=== PATIENT | female | born 1985 | race Caucasian/White ===

== ENCOUNTER 2016-08-02 20:59 | Emergency (ER) | payer OTHER ==
--- NOTE | 2016-08-02 23:59 | ED CLINICAL REPORT ---
Clinical Report - Physicians/Mid Levels [facility] [address] [place] [address] 08/02/2016 21:00 Patient: AYDEN GRAYSON Time Seen: 21:13; initial patient contact. Arrived- By private vehicle. Historian- patient. HISTORY OF PRESENT ILLNESS Chief Complaint: VOMITING. This started today and is still present (persistent). It was abrupt in onset and has been intermittent. The patient has had nausea and vomiting. No diarrhea, abdominal pain, constipation or flank pain. Has not recently been on antibiotics. Last bowel movement: today. The illness is described as moderate. Similar symptoms previously: None. Recent medical care: Not recently seen/assessed. REVIEW OF SYSTEMS The patient has had fever of 99 F orally. No difficulty with urination or dark urine. All systems otherwise negative, except as recorded above. PAST HISTORY Flank Pain. Hematuria. PCOS. Contusion. Fractured Metatarsal. SURGERIES: Foot surgery. Medications: MetFORMIN HCl Oral. PROzac Oral. Allergies: Sulfa Antibiotics. SOCIAL HISTORY Former smoker. No alcohol use or drug use. ADDITIONAL NOTES The nursing notes have been reviewed with agreement regarding the chief complaint, PMH and patient medications and allergies. PHYSICAL EXAM Appearance: Alert. No acute distress. Eyes: No scleral icterus. ENT: Dry mucous membranes present. CVS: Normal heart rate and rhythm. Heart sounds normal. Respiratory: No respiratory distress. Breath sounds normal. Abdomen: Soft and nontender. Bowel sounds normal. No organomegaly. No mass. Back: Normal inspection. No CVA tenderness. Skin: Skin warm and dry. Normal skin color. No rash. Neuro: Oriented X 3. LABS, X-RAYS, AND EKG Laboratory Tests: CBC w Diff: (RAPHAEL: 08/02/2016 21:42) ( MsgRcvd 08/02/2016 21:50) Final results Test Result Flag Units (Reference) WHITE BLOOD COUNT 12.6 H K/uL (4.5-11.5) RED BLOOD COUNT 3.75 L M/uL (4.00-5.20) HEMOGLOBIN 11.1 L gm/dL (12.0-16.0) HEMATOCRIT 32.5 L % (36.0-46.0) MEAN CELL VOLUME 87 fL (80-100) MEAN CORPUSCULAR HGB 30 pg (26-34) MEAN CORPUSCULAR HGB CONC 34 g/dL (31-37) RED CELL DISTRIBUTION WIDTH 12.9 % (11.6-14.8) PLATELET COUNT 232 K/uL (150-400) NEUTROPHIL % 93.7 H % (50-75) LYMPH % 2.6 L % (25-40) MONO % 3.7 % (3-14) EOSINOPHIL % 0 % (0-4) BASOPHIL % 0 % (0-2) CMP: (RAPHAEL: 08/02/2016 21:42) ( MsgRcvd 08/02/2016 22:07) Final results Test Result Flag Units (Reference) GLUCOSE 92 mg/dL (70-110) BUN 8 mg/dL (7-18) CREATININE 0.6 mg/dL (0.6-1.3) Estimated GFR >60 mL/min Estimated GFR- >60 mL/min Note: Persistent reduction over 3 months in eGFR<60 mL/min/1.73 m2 defines CKD. Patients with eGFR values>=60 mL/min/1.73 m2 may also have CKD if evidence ofpersistent proteinuria. Additional information may be foundat [email or web address].org. SODIUM 139 mmol/L (136-145) POTASSIUM 3.3 L mmol/L (3.5-5.1) CHLORIDE 103 mmol/L (98-107) CARBON DIOXIDE 21 mmol/L (21-32) CALCIUM 8.7 mg/dL (8.5-10.1) TOTAL PROTEIN 6.9 g/dL (6.4-8.2) ALBUMIN 2.8 L g/dL (3.3-5.0) BILIRUBIN, TOTAL 0.5 mg/dL (0.0-1.0) ALKALINE PHOSPHATASE 43 L U/L (46-116) AST (SGOT) 17 U/L (15-37) ALT (SGPT) 19 U/L (12-78) LIPASE 129 U/L (73-393) AMYLASE 35 U/L (25-115) . PROGRESS AND PROCEDURES Course of Care: 00:09. Evaluation after repeat exam, IV fluids and Zofran. The patient's symptoms are now gone. Physical exam findings are improved. Disposition: Discharged home in good and improved condition. Condition: good. CLINICAL IMPRESSION Vomiting with nausea. No dehydration or volume depletion. Not intractable. INSTRUCTIONS Drink plenty of fluids. Avoid fatty, fried/greasy and spicy foods until better. Your Current Medications: CONTINUE TAKING THE FOLLOWING MEDICATIONS: MetFORMIN HCl Oral. PROzac Oral. Prescription Medications: Hydrocodone/APAP 5mg / 325mg: take 1 orally every 6 hours as needed for pain. Dispense ten (10). No refill. Zofran (orally disintegrating tablets) 4 mg: take 1 orally every 6 hours as needed for nausea and vomiting. Dispense ten (10). No refill. Substitution is permissible. Follow-up: Follow up with your doctor in about three days if not better. Call for an appointment. Screening today revealed the patient's blood pressure to be in the normal range. (Electronically signed by Aayush Alfaro Dr. 08/03/2016 0:02)
--- NOTE | 2016-08-02 23:59 | ED NURSING NOTES ---
Clinical Report - Nurses [facility] [address] [place] [address] 08/02/2016 21:00 Patient: AYDEN GRAYSON TRIAGE Triage time 2110 PM. Acuity: LEVEL 3. Chief Complaint: ABDOMINAL PAIN. Alert. No acute distress. SEPSIS SCREEN: Sepsis Screen. Negative (no infection suspected/documented). HEART TONES: heart tones present to the right lower quadrant (153). heart tones present to the right lower quadrant (153). MARIANO COMA SCORE: [place] Coma Scale: 15- eyes open spontaneously (4); best verbal response- oriented x 4 (5); best motor response- obeys commands (6). --21:24 Farrah Murray R.N. 21:13 08/02/16. BP: 121/74 (regular adult cuff) taken on the left arm, via an automated monitor, while lying. HR: 108. RR: 16. O2 saturation: 100% on room air. Temp: 99 F (oral). Pain level now: 10/02. --21:24 Farrah Murray R.N. Weight: 88.4 kg stated. Height/Length: 66 inches Per Patient. BMI: 31.5. --21:13 Farrah Murray R.N. Medications MetFORMIN HCl Oral. PROzac Oral. --21:28 Farrah Murray R.N. Allergies Sulfa Antibiotics. --21:28 Farrah Murray R.N. Medication/allergy information source: the patient. --21:24 Farrah Murray R.N. History Arrived by private vehicle. Historian: patient. Accompanied by family. Primary physician (Dr. Reynoso (general) OB at [facility]). ( Pt states being 25 weeks , has not had any vomiting until this morning, at around 8 am, pt felt dizzy and starting vomiting, approximately 12-15 times today, unable to keep anything down, with chills slight fever of 99.9, denies cramping, bleeding or discharge. Pt also complaints of bilateral flank pain, sharp, as well as joint pain. Did call the 24 hr nurse line and was recommended to come to ED). This started today. She has had vomiting. She has had low grade measured temperature of 99.9 F orally with chills (today). No swelling. Last oral intake by patient was dinner (lasst night). 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 PAST MEDICAL HX: Immunizations: up-to-date. Currently : 25 weeks. In 2nd trimester. Has had care in clinic. G 0. P 0. Ab 0. She has had care by an advertising copy writer. Risks and / or problems associated with current include vag bleeding during 1st trimester (sub hematoma/ no bedrest). SOCIAL HX: Former smoker, end date 2011. No alcohol use or drug use. No infectious disease exposure. ABUSE ASSESSMENT: No report of abuse. SELF HARM ASSESSMENT: A self harm assessment was performed. The patient answered "no" to the question "Do you have thoughts of harming or killing yourself?" and "Have you recently had thoughts about harming or killing others?". FALL RISK ASSESSMENT: Fall risk assessment completed. No fall risk identified. NUTRITIONAL RISK ASSESSMENT: The nutritional risk assessment revealed no deficiencies. FUNCTIONAL ASSESSMENT: Functional assessment: no impairments noted. LEARNING NEEDS ASSESSMENT: The learning needs assessment revealed no barriers. SKIN INTEGRITY ASSESSMENT: Skin integrity risk assessment completed. No skin integrity risk identified. --21:24 Farrah Murray R.N. PROBLEMS: Flank Pain. Hematuria. PCOS. Contusion. Fractured Metatarsal. LNMP - Last Normal Menstrual Period. --21:28 Farrah Murray R.N. ADDITIONAL SURGERIES: Foot surgery. --21:28 Farrah Murray R.N. Interventions ID band on patient. --21:24 Farrah Murray R.N. PHYSICAL ASSESSMENT Ambulatory to room. GENERAL / NEURO / PSYCH: Alert. Oriented X 4. Appears in no acute distress. HEENT: Mucous membranes are pink. RESPIRATORY: Respirations not labored. Breath sounds within normal limits. CVS: Capillary refill less than 2 seconds. GI / : Abdomen soft and nontender. No vaginal bleeding or discharge. EXTREMITIES: No lower extremity edema. SKIN: Skin is warm and dry. --21:26 Farrah Murray R.N. NURSING PROGRESS NOTES The initial plan of care for this patient has been created This plan of care was discussed with the patient. Patient gowned. Warming measures: blanket applied. Reassurance given. Two patient identifiers checked. Call light placed in reach. Side rails up x 1. Bed placed in lowest position. --21:27 Farrah Murray R.N. 21:45 08/02/2016 Site #1 started via IV in the left hand with an 20g angiocath; one attempt. Blood drawn: rainbow set. Labeled in the presence of the patient and sent to the lab. --21:45 Farrah Murray R.N. 21:46 08/02/2016 Zofran (Ondansetron HCl) IVP 4 mg given over 2 minute(s) via site #1. Allergies verified and confirmed 5 rights. IV patency established. IV site checked: no pain, redness, or swelling. IV flushed thoroughly pre- and post-medication administration. IVP given by RN. --21:46 Farrah Murray R.N. 21:46 08/02/2016 Started bag #1 1000 mL IV Fluids IV NS (Saline); at 1000 mL/hr over 1 hour(s) via site #1 via IV pump. Allergies verified and confirmed 5 rights. IV patency established. IV site checked: no pain, redness, or swelling. IV flushed thoroughly pre- and post-medication administration. Completed per protocol. --21:46 Farrah Murray R.N. 22:47 08/02/2016 IV Fluids IV NS Discontinued: bag #1 completed upon arrival. Total amount infused: 1000 mL. IV patency established. IV site checked: no pain, redness, or swelling. IV flushed thoroughly. --22:47 Farrah Murray R.N. 22:47 08/02/2016 Zofran IVP Response: no adverse reaction symptoms have improved the patient feels better. --22:47 Farrah Murray R.N. Reassurance given. The patient is calm. Overall patient status is improved- she states feels better. GI / : The patient reports abdominal pain. No vaginal bleeding. BACK: The patient reports low back pain is still present and currently moderate in severity, intermittent and described as sharp. Two patient identifiers checked. Call light placed in reach. Side rails up x 1. --22:55 Farrah Murray R.N. 22:53 08/02/16. BP: 111/64 (regular adult cuff) taken on the left arm, via an automated monitor, while lying. HR: 87. RR: 15. O2 saturation: 95%. Pain level now: 10/02. --22:55 Farrah Murray R.N. 23:08 08/02/2016 Morphine IVP 2 mg given over 1 minute(s) via site #1. Allergies verified, confirmed 5 rights and sedative warning given to the patient and patient's family. IV patency established. IV site checked: no pain, redness, or swelling. IV flushed thoroughly pre- and post-medication administration. IVP given by RN. --23:08 Farrah Murray R.N. 23:13 08/02/16. BP: 108/60. HR: 88. RR: 12. O2 saturation: 97%. O2 started via nasal cannula at 2 liters/minute. Pain level now: 10/02. --23:15 Farrah Murray R.N. Oxygen administered. Pulse oximeter and NIBP monitor placed on patient. Reassurance given. Reassessment after oxygen administered and medication administered. She has had no adverse reaction. Overall patient status is improved- she states feels better. ( Gave morphine 2mg at a time, tolerated well, place on o2 for sedation and monitoring, tolerating ice chips. Family at bedside). BACK: The patient reports low back pain. Two patient identifiers checked. Bed placed in lowest position. --23:15 Farrah Murray R.N. Care transferred and report given (JULISSA Sunshine). --23:20 Farrah Murray R.N. 23:52 08/02/2016 Zofran (Ondansetron HCl) IVP 4 mg given over 1 minute(s) via site #1. Allergies verified and confirmed 5 rights. IV patency established. IV site checked: no pain, redness, or swelling. IV flushed thoroughly pre- and post-medication administration. IVP given by RN. --23:59 Jesusita Roberson R.N. DISPOSITION / DISCHARGE 00:00 08/03/16. --00:00 Jesusita Roberson R.N. 23:53 08/02/16. BP: 104/76. HR: 88. RR: 16. O2 saturation: 100%. Temp: 98.8 F. Pain level now: 06/04. 23:13 08/02/16. BP: 108/60. HR: 88. RR: 12. O2 saturation: 97%. O2 started via nasal cannula at 2 liters/minute. Pain level now: 10/02. 22:53 08/02/16. BP: 111/64 (regular adult cuff) taken on the left arm, via an automated monitor, while lying. HR: 87. RR: 15. O2 saturation: 95%. Pain level now: 10/02. 21:13 08/02/16. BP: 121/74 (regular adult cuff) taken on the left arm, via an automated monitor, while lying. HR: 108. RR: 16. O2 saturation: 100% on room air. Temp: 99 F (oral). Pain level now: 10/02. --00:00 Jesusita Roberson R.N. 00:08 08/03/2016 Site #1 removed upon discharge. Catheter intact. Pressure dressing applied. --00:08 Jesusita Roberson R.N. 00:08 08/03/16. Departure time: 00:Aug 03 2016. Condition at departure: improved and stable. The goals identified in the patient's plan of care were met. No learning barriers present. Discharge instructions provided and reviewed with the patient. Reviewed medication(s) side effects, precautions, dosing and course information. Prescription(s) given to the patient. Reviewed IV site care instructions. Reviewed referral to an advertising copy writer and a primary care physician for followup. Summary of care provided to patient via paper. Patient verbalized understanding. Written instructions provided in [place]. The patient was discharged home and accompanied by spouse. She left the Emergency Department ambulatory and via private vehicle. Spouse driving. FALL RISK ASSESSMENT: Fall risk assessment completed. No fall risk identified. --00:09 Jesusita Roberson R.N. Locked/Released at 08/03/2016 0:09 by Jesusita Roberson R.N.
--- NOTE | 2016-08-02 23:59 | ED ORDER SUMMARY ---
..... Patient: AYDEN GRAYSON OrderSheet [facility] VisitID: [id number] [place] [address] 30y, F Registration Date/Time: 08/02/2016 ORDER SHEET Weight: 88.4 kg (stated) Allergies: Sulfa Antibiotics GENERAL ORDERS: CBC w Diff Urgent (21:08/02/2016 Jasbir Tinoco) (Ack 21:30 AMcQuoid ER Tech1) (21:45 EHassan R.N.) CMP Urgent (21:08/02/2016 Jasbir Tinoco) (Ack 21:30 AMcQuoid ER Tech1) (21:45 EHassan R.N.) UA-Culture if indicated Urgent (21:08/02/2016 Jasbir Tinoco) (Ack 21:30 AMcQuoid ER Tech1) (21:46 EHassan R.N.) Amylase Urgent (21:08/02/2016 Jasbir Tinoco) (Ack 21:30 AMcQuoid ER Tech1) (21:45 EHassan R.N.) Lipase Urgent (21:08/02/2016 Jasbir Tinoco) (Ack 21:30 AMcQuoid ER Tech1) (21:45 EHassan R.N.) MEDICATION ORDERS: IV FLUIDS: IV NS : initial bolus none -, then 1000 mL/hr for X1 (NOW) (21:28 08/02/2016 Jasbir Tinoco) (Ack 21:37 HSoule) (21:46 EHassan R.N.) Zofran IV 4 mg (NOW) (21:29 08/02/2016 Jasbir Tinoco) (Ack 21:37 HSoule) (21:46 EHassan R.N.) Morphine IV 4 mg (HIGH ALERT MEDICATION, NOW) (22:50 08/02/2016 Jasbir Tinoco) (23:08 EHassan R.N.) Zofran IV 4 mg (NOW) (23:58 08/02/2016 Jasbir Tinoco) (23:59 ROBERnderciarrazen R.N.) ORDER SHEET NOTES: [Electronically signed by Aayush Alfaro Dr. (00:02 08/03/2016)] [Electronically signed by Jesusita Roberson R.N. (00:09 08/03/2016)] [Electronically locked/signed by Jesusita Roberson R.N. (00:09 08/03/2016)]
--- NOTE | 2016-08-02 23:59 | ED ORDER SUMMARY ---
..... Patient: AYDEN GRAYSON OrderSheet [facility] VisitID: [id number] [place] [address] 30y, F Registration Date/Time: 08/02/2016 ORDER SHEET Weight: 88.4 kg (stated) Allergies: Sulfa Antibiotics GENERAL ORDERS: CBC w Diff Urgent (21:08/02/2016 Jasbir Tinoco) (Ack 21:30 AMcQuoid ER Tech1) (21:45 EHassan R.N.) CMP Urgent (21:08/02/2016 Jasbir Tinoco) (Ack 21:30 AMcQuoid ER Tech1) (21:45 EHassan R.N.) UA-Culture if indicated Urgent (21:08/02/2016 Jasbir Tinoco) (Ack 21:30 AMcQuoid ER Tech1) (21:46 EHassan R.N.) Amylase Urgent (21:08/02/2016 Jasbir Tinoco) (Ack 21:30 AMcQuoid ER Tech1) (21:45 EHassan R.N.) Lipase Urgent (21:08/02/2016 Jasbir Tinoco) (Ack 21:30 AMcQuoid ER Tech1) (21:45 EHassan R.N.) MEDICATION ORDERS: IV FLUIDS: IV NS : initial bolus none -, then 1000 mL/hr for X1 (NOW) (21:28 08/02/2016 Jasbir Tinoco) (Ack 21:37 HSoule) (21:46 EHassan R.N.) Zofran IV 4 mg (NOW) (21:29 08/02/2016 Jasbir Tinoco) (Ack 21:37 HSoule) (21:46 EHassan R.N.) Morphine IV 4 mg (HIGH ALERT MEDICATION, NOW) (22:50 08/02/2016 Jasbir Tinoco) (23:08 EHassan R.N.) Zofran IV 4 mg (NOW) (23:58 08/02/2016 Jasbir Tinoco) (23:59 ROBERnderciarrazen R.N.) ORDER SHEET NOTES: [Electronically signed by Aayush Alfaro Dr. (00:02 08/03/2016)] [Electronically signed by Jesusita Roberson R.N. (00:09 08/03/2016)] [Electronically locked/signed by Jesusita Roberson R.N. (00:09 08/03/2016)]
--- NOTE | 2016-08-03 00:10 | ED MAR SUMMARY ---
..... Medication Administration Record [facility] [address] [place] [address] Patient: AYDEN GRAYSON Visit ID: [id number] 30y, F Weight: 88.4 kg Height/Length: 66 in BMI: 31.5 ALLERGIES: Sulfa Antibiotics Start 21:46 08/02/2016 Farrah Murray R.N., Stop 22:47 08/02/2016 Farrah Murray R.N. Medication Administered: IV NS (SALINE), Dose: IV Fluids over 1 hour(s), Rate: 1000 mL/hr, Dispensed: 1000 mL bag, Site: #1 left hand. Medication Ordered: IV NS : initial bolus none -, then 1000 mL/hr for X1 (NOW). Given 21:46 08/02/2016 Farrah Murray R.N. Medication Administered: ZOFRAN [IVP] (ONDANSETRON HCL), Dose: 4 mg IVP over 2 minute(s), Site: #1 left hand. Medication Ordered: Zofran IV 4 mg (NOW). Given 23:08 08/02/2016 Farrah Murray R.N. Medication Administered: MORPHINE [IVP], Dose: 2 mg IVP over 1 minute(s), Site: #1 left hand. Medication Ordered: Morphine IV 4 mg (HIGH ALERT MEDICATION, NOW). Given 23:52 08/02/2016 Jesusita Roberson R.N. Medication Administered: ZOFRAN [IVP] (ONDANSETRON HCL), Dose: 4 mg IVP over 1 minute(s), Site: #1 left hand. Medication Ordered: Zofran IV 4 mg (NOW).
--- NOTE | 2016-08-03 00:10 | ED MED RECONCILIATION SUMMARY ---
Patient: AYDEN GRAYSON Medication Reconciliation Report [facility] VisitID: [id number] [place] [address] 30y, F Registration Date/Time: 08/02/2016 Weight: 88.4 kg Height/Length: 66 in. BMI: 31.5 ALLERGIES: Sulfa Antibiotics The patient's Home Medications are listed below: CONTINUE TAKING THE FOLLOWING MEDICATIONS: MetFORMIN HCl Oral PROzac Oral The source(s) of the original Home Medication information: patient The following Medications were given to the patient in the Emergency Department: Zofran [IVP] IVP 4 mg, administered: 08/02/2016 9:46:00 PM IV NS IV Fluids bolus 0, then 1000 mL/hr, administered: 08/02/2016 9:46:00 PM Morphine [IVP] IVP 2 mg, administered: 08/02/2016 11:08:00 PM Zofran [IVP] IVP 4 mg, administered: 08/02/2016 11:52:00 PM The following Medications were prescribed to the patient: Hydrocodone/APAP 5mg / 325mg: take 1 orally every 6 hours as needed for pain. Dispense ten (10). No refill. -- Aayush Alfaro Dr. Zofran (orally disintegrating tablets) 4 mg: take 1 orally every 6 hours as needed for nausea and vomiting. Dispense ten (10). No refill. Substitution is permissible. -- Aayush Alfaro Dr.
--- NOTE | 2016-08-03 00:10 | ED MED RECONCILIATION SUMMARY ---
Patient: AYDEN GRAYSON Medication Reconciliation Report [facility] VisitID: [id number] [place] [address] 30y, F Registration Date/Time: 08/02/2016 Weight: 88.4 kg Height/Length: 66 in. BMI: 31.5 ALLERGIES: Sulfa Antibiotics The patient's Home Medications are listed below: CONTINUE TAKING THE FOLLOWING MEDICATIONS: MetFORMIN HCl Oral PROzac Oral The source(s) of the original Home Medication information: patient The following Medications were given to the patient in the Emergency Department: Zofran [IVP] IVP 4 mg, administered: 08/02/2016 9:46:00 PM IV NS IV Fluids bolus 0, then 1000 mL/hr, administered: 08/02/2016 9:46:00 PM Morphine [IVP] IVP 2 mg, administered: 08/02/2016 11:08:00 PM Zofran [IVP] IVP 4 mg, administered: 08/02/2016 11:52:00 PM The following Medications were prescribed to the patient: Hydrocodone/APAP 5mg / 325mg: take 1 orally every 6 hours as needed for pain. Dispense ten (10). No refill. -- Aayush Alfaro Dr. Zofran (orally disintegrating tablets) 4 mg: take 1 orally every 6 hours as needed for nausea and vomiting. Dispense ten (10). No refill. Substitution is permissible. -- Aayush Alfaro Dr.
--- NOTE | 2016-08-03 00:10 | ED MAR SUMMARY ---
..... Medication Administration Record [facility] [address] [place] [address] Patient: AYDEN GRAYSON Visit ID: [id number] 30y, F Weight: 88.4 kg Height/Length: 66 in BMI: 31.5 ALLERGIES: Sulfa Antibiotics Start 21:46 08/02/2016 Farrah Murray R.N., Stop 22:47 08/02/2016 Farrah Murray R.N. Medication Administered: IV NS (SALINE), Dose: IV Fluids over 1 hour(s), Rate: 1000 mL/hr, Dispensed: 1000 mL bag, Site: #1 left hand. Medication Ordered: IV NS : initial bolus none -, then 1000 mL/hr for X1 (NOW). Given 21:46 08/02/2016 Farrah Murray R.N. Medication Administered: ZOFRAN [IVP] (ONDANSETRON HCL), Dose: 4 mg IVP over 2 minute(s), Site: #1 left hand. Medication Ordered: Zofran IV 4 mg (NOW). Given 23:08 08/02/2016 Farrah Murray R.N. Medication Administered: MORPHINE [IVP], Dose: 2 mg IVP over 1 minute(s), Site: #1 left hand. Medication Ordered: Morphine IV 4 mg (HIGH ALERT MEDICATION, NOW). Given 23:52 08/02/2016 Jesusita Roberson R.N. Medication Administered: ZOFRAN [IVP] (ONDANSETRON HCL), Dose: 4 mg IVP over 1 minute(s), Site: #1 left hand. Medication Ordered: Zofran IV 4 mg (NOW).
--- NOTE | 2016-08-03 00:10 | ED DISCHARGE INSTRUCTIONS ---
Patient: AYDEN GRAYSON General Instructions VisitID: [id number] [place] [address] 30y, F Registration Date/Time: 08/02/2016 Vomiting with nausea. No dehydration or volume depletion. Not intractable. INSTRUCTIONS Drink plenty of fluids. Avoid fatty, fried/greasy and spicy foods until better. Your Current Medications: CONTINUE TAKING THE FOLLOWING MEDICATIONS: MetFORMIN HCl Oral. PROzac Oral. Prescription Medications: Hydrocodone/APAP 5mg / 325mg: take 1 orally every 6 hours as needed for pain. Dispense ten (10). No refill. Zofran (orally disintegrating tablets) 4 mg: take 1 orally every 6 hours as needed for nausea and vomiting. Dispense ten (10). No refill. Substitution is permissible. Follow-up: Follow up with your doctor in about three days if not better. Call for an appointment. Screening today revealed the patient's blood pressure to be in the normal range. ADDITIONAL INFORMATION Vomiting [6Yr-Adult] Vomiting is a common symptom that may be due to different causes. These include gastroenteritis ("stomach flu"), food poisoning and gastritis. There are other more serious causes of vomiting which may be hard to diagnose early in the illness. Therefore, it is important to watch for the warning signs listed below. The main danger from repeated vomiting is dehydration. This is due to excess loss of water and minerals from the body. When this occurs, body fluids must be replaced. Home Care: If symptoms are severe, rest at home for the next 24 hours. You may use acetaminophen (Tylenol) or ibuprofen (Motrin, Advil) to control fever, unless another medicine was prescribed. [NOTE : If you have chronic liver or kidney disease or ever had a stomach ulcer or GI bleeding, talk with your doctor before using these medicines.] (Aspirin should never be used in anyone under 18 years of age who is ill with a fever. It may cause severe liver damage.) Avoid tobacco and alcohol use, which may worsen your symptoms. If medicines for vomiting were prescribed, take as directed. Once vomiting stops, then follow these guidelines: During The First 12-24 Hours follow the diet below: FRUIT JUICES: Apple, grape juice, clear fruit drinks, and electrolyte replacement drinks. BEVERAGES: Soft drinks without caffeine; mineral water (plain or flavored), decaffeinated tea and coffee. SOUPS: Clear broth, consomm and bouillon DESSERTS: Plain gelatin, popsicles and fruit juice bars. As you feel better, you may add 6-8 ounces of yogurt per day. During The Next 24 Hours you may add the following to the above: Hot cereal, plain toast, bread, rolls, crackers Plain noodles, rice, mashed potatoes, chicken noodle or rice soup Unsweetened canned fruit (avoid pineapple), bananas Limit caffeine and chocolate. No spices or seasonings except salt. During The Next 24 Hours Gradually resume a normal diet, as you feel better and your symptoms lessen. Follow Up with your doctor as advised if you are not improving over the next 2-3 days. Get Prompt Medical Attention if any of the following occur: Constant right-sided lower abdominal pain or increasing general abdominal pain Continued vomiting (unable to keep liquids down) for 24 hours Frequent diarrhea (more than 5 times a day); blood (red or black color) or mucus in diarrhea Reduced urine output or extreme thirst Weakness, dizziness or fainting Unusually drowsy or confused Fever of 100.4F (38C) oral or higher, not better with fever medication Yellow color of the eyes or skin [place] Diet A bland diet is used for patients with an upset stomach. It consists of foods that are mild and easy to digest. It is better to eat small frequent meals rather than three large meals a day. BEVERAGES OK: Fruit juices, non-caffeinated teas and coffee, non-carbonated nicholas AVOID: Carbonated beverage, caffeinated tea and coffee, all alcoholic beverages BREAD OK: Refined white, wheat or rye bread, anahi or soda crackers, [place] toast, plain rolls, bagels AVOID: Whole-grain bread CEREAL OK: Refined cereals: cooked or ready to eat AVOID: Whole grain cereals and granola, or those containing bran, seeds or nuts DESSERTS OK: Peanut butter and all others except those to "avoid" AVOID: Chocolate, cocoa, coconut, popcorn, nuts, seeds, jam, marmalade FRUITS OK: Canned, cooked, frozen or fresh fruits without seeds or tough skin AVOID: Olives, skin and seeds of fruit MEATS OK: All fresh or preserved meat, fish and fowl AVOID: Any that are prepared with those spices to "avoid" CHEESE & EGGS OK: Eggs, cottage cheese, cream cheese, other cheeses AVOID: All cheeses made with those spices to "avoid" POTATOES & PASTA OK: Potato, rice, macaroni, noodles, spaghetti AVOID: None SOUPS OK: All soups without heavy seasoning AVOID: Soups made with those spices to "avoid" VEGETABLES OK: Canned, cooked, fresh or frozen mildly flavored vegetables without seeds, skins or coarse fiber AVOID: Vegetables prepared with those spices to "avoid"; skin and seeds of vegetables and those with coarse fiber SPICES OK: Salt, lemon and [place] juice, vinegar, all extracts, osito, cinnamon, thyme, mace, allspice, paprika AVOID: Benson powder, cloves, pepper, seed spices, garlic, gravy pickles, highly seasoned salad dressings Hydrocodone Bitartrate, Acetaminophen Oral tablet What is this medicine? ACETAMINOPHEN; HYDROCODONE (a set a TJ aline fen; zhanna droe KOE done) is a pain reliever. It is used to treat mild to moderate pain. How should I use this medicine? Take this medicine by mouth. Swallow it with a full glass of water. Follow the directions on the prescription label. If the medicine upsets your stomach, take the medicine with food or milk. Do not take more than you are told to take. Talk to your advice clerk regarding the use of this medicine in children. This medicine is not approved for use in children. What side effects may I notice from receiving this medicine? Side effects that you should report to your doctor or health before and after school daycare worker as soon as possible: allergic reactions like skin rash, itching or hives, swelling of the face, lips, or tongue breathing problems confusion feeling faint or lightheaded, falls stomach pain yellowing of the eyes or skin Side effects that usually do not require medical attention (report to your doctor or health before and after school daycare worker if they continue or are bothersome): nausea, vomiting stomach upset What may interact with this medicine? alcohol antihistamines isoniazid medicines for depression, anxiety, or psychotic disturbances medicines for sleep muscle relaxants naltrexone narcotic medicines (opiates) for pain phenobarbital ritonavir tramadol What if I miss a dose? If you miss a dose, take it as soon as you can. If it is almost time for your next dose, take only that dose. Do not take double or extra doses. Where should I keep my medicine? Keep out of the reach of children. This medicine can be abused. Keep your medicine in a safe place to protect it from theft. Do not share this medicine with anyone. Selling or giving away this medicine is dangerous and against the law. Store at room temperature between 15 and 30 degrees C (59 and 86 degrees F). Protect from light. Keep container tightly closed. Throw away any unused medicine after the expiration date. Discard unused medicine and used packaging carefully. Pets and children can be harmed if they find used or lost packages. What should I tell my health care provider before I take this medicine? They need to know if you have any of these conditions: brain tumor Crohn's disease, inflammatory bowel disease, or ulcerative colitis drink more than 3 alcohol-containing drinks per day drug abuse or addiction head injury heart or circulation problems kidney disease or problems going to the bathroom liver disease lung disease, asthma, or breathing problems an unusual or allergic reaction to acetaminophen, hydrocodone, other opioid analgesics, other medicines, foods, dyes, or preservatives or trying to get breast-feeding What should I watch for while using this medicine? Tell your doctor or health before and after school daycare worker if your pain does not go away, if it gets worse, or if you have new or a different type of pain. You may develop tolerance to the medicine. Tolerance means that you will need a higher dose of the medicine for pain relief. Tolerance is normal and is expected if you take the medicine for a long time. Do not suddenly stop taking your medicine because you may develop a severe reaction. Your body becomes used to the medicine. This does NOT mean you are addicted. Addiction is a behavior related to getting and using a drug for a non-medical reason. If you have pain, you have a medical reason to take pain medicine. Your doctor will tell you how much medicine to take. If your doctor wants you to stop the medicine, the dose will be slowly lowered over time to avoid any side effects. You may get drowsy or dizzy when you first start taking the medicine or change doses. Do not drive, use machinery, or do anything that may be dangerous until you know how the medicine affects you. Stand or sit up slowly. There are different types of narcotic medicines (opiates) for pain. If you take more than one type at the same time, you may have more side effects. Give your health care provider a list of all medicines you use. Your doctor will tell you how much medicine to take. Do not take more medicine than directed. Call emergency for help if you have problems breathing. The medicine will cause constipation. Try to have a bowel movement at least every 2 to 3 days. If you do not have a bowel movement for 3 days, call your doctor or health before and after school daycare worker. Too much acetaminophen can be very dangerous. Do not take Tylenol (acetaminophen) or medicines that contain acetaminophen with this medicine. Many non-prescription medicines contain acetaminophen. Always read the labels carefully. Ondansetron Oral disintegrating tablet What is this medicine? ONDANSETRON (on SANTOS se nathaly) is used to treat nausea and vomiting caused by chemotherapy. It is also used to prevent or treat nausea and vomiting after surgery. How should I use this medicine? These tablets are made to dissolve in the mouth. Do not try to push the tablet through the foil backing. With dry hands, peel away the foil backing and gently remove the tablet. Place the tablet in the mouth and allow it to dissolve, then swallow. While you may take these tablets with water, it is not necessary to do so. Talk to your advice clerk regarding the use of this medicine in children. Special care may be needed. What side effects may I notice from receiving this medicine? Side effects that you should report to your doctor or health before and after school daycare worker as soon as possible: allergic reactions like skin rash, itching or hives, swelling of the face, lips, or tongue breathing problems dizziness fast or irregular heartbeat feeling faint or lightheaded, falls fever and chills swelling of the hands and feet tightness in the chest Side effects that usually do not require medical attention (report to your doctor or health before and after school daycare worker if they continue or are bothersome): constipation or diarrhea headache What may interact with this medicine? Do not take this medicine with any of the following medications: -apomorphine -cisapride -dofetilide -dronedarone -pimozide -thioridazine -ziprasidone This medicine may also interact with the following medications: -carbamazepine -phenytoin -rifampicin -tramadol -other medicines that prolong the QT interval (cause an abnormal heart rhythm) What if I miss a dose? If you miss a dose, take it as soon as you can. If it is almost time for your next dose, take only that dose. Do not take double or extra doses. Where should I keep my medicine? Keep out of the reach of children. Store between 2 and 30 degrees C (36 and 86 degrees F). Throw away any unused medicine after the expiration date. What should I tell my health care provider before I take this medicine? They need to know if you have any of these conditions: heart disease history of irregular heartbeat liver disease low levels of magnesium or potassium in the blood an unusual or allergic reaction to ondansetron, granisetron, other medicines, foods, dyes, or preservatives or trying to get breast-feeding What should I watch for while using this medicine? Check with your doctor or health before and after school daycare worker as soon as you can if you have any sign of an allergic reaction. You have been given the following additional information: Vomiting (6Y-Adult) Diet, [place] (Adult) Hydrocodone Bitartrate, Acetaminophen Oral tablet Ondansetron Oral disintegrating tablet (Electronically signed by Aayush Alfaro Dr. 08/03/2016 0:02)
== END 2016-08-03 00:08 | disposition home or self-care (01) ==
LOC: ED SRH 20:59
DX: O21.2 Late vomiting of pregnancy (principal); Z3A.25 25 weeks gestation of pregnancy; Z87.891 Personal history of nicotine dependence; Z79.899 Other long term (current) drug therapy; Z88.2 Allergy status to sulfonamides
CPT/HCPCS: 90004; 90100; 92235; 92530; 95059